=== PATIENT | male | born 1930 | race Asian ===

== ENCOUNTER 2018-08-23 07:50 | Outpatient (CLI) | payer BC ==
[2018-08-23 09:28] LABS: HEMATOCRIT 43 % (39-51); HEMOGLOBIN 13.9 g/dL (13.5-17.5); MEAN CORPUSCULAR HGB CONC 33 g/dl (31.0-36.0); MEAN CORPUSCULAR VOLUME 90 fL (80-96); MONOCYTES # (AUTO) 0.4 /CMM (0.1-1.30); MONOCYTES % (AUTO) 9.8 % (2.0-12.0); NEUTROPHILS # (AUTO) 2.6 /CMM (1.8-8.9); NEUTROPHILS % (AUTO) 60.2 % (43.0-81.0); PLATELET COUNT (AUTO) 231 /CMM (150-450); RDW COEFFICIENT OF VARIATION 14.4 (11.5-15.0); RED BLOOD CELL COUNT(AUTO) 4.74 MIL/uL (4.5-6.0); WHITE BLOOD COUNT (AUTO) 4.3 K/uL (4.3-11.0)
[2018-08-23 09:44] LABS: ALANINE AMINOTRANSFERASE 17 U/L (12-78); ALBUMIN 4.3 g/dL (3.4-5.0); ALKALINE PHOSPHATASE 77 U/L (46-116); ASPARTATE AMINOTRANSFERASE 17 U/L (15-37); CARBON DIOXIDE 27 mmol/L (21-32); CHLORIDE 106 mmol/L (98-107); CREATININE 1.1 mg/dL (0.6-1.3); GLUCOSE 101 mg/dL (74-106); POTASSIUM 4.2 mmol/L (3.5-5.1); SODIUM SERUM 143 mmol/L (136-145); TOTAL PROTEIN, SERUM 7.8 g/dL (6.4-8.2); UREA NITROGEN, BLOOD 14 mg/dL (7-18)
[2018-08-23 09:52] LABS: THYROID STIMULATING HORMONE 1.196 uIU/mL (0.358-3.74); URIC ACID 4.5 mg/dL (2.6-7.2)
== END 2018-08-23 23:59 | disposition home or self-care (01) ==
LOC: LAB 07:50
PROVIDERS: ATTEND Family Medicine
DX: M19.071 Primary osteoarthritis, right ankle and foot (principal); M85.871 Other specified disorders of bone density and structure, right ankle and foot; M17.0 Bilateral primary osteoarthritis of knee; M21.969 Unspecified acquired deformity of unspecified lower leg
CPT/HCPCS: 36415; 73562; 73610-TC; 73630-TC; 80053-TC; 84439-TC; 84443-TC; 84550-TC; 85025-TC; 86431-TC

== ENCOUNTER 2018-08-25 10:52 | Outpatient (CLI) | payer BC | END 2018-08-25 23:59 | disposition home or self-care (01) | LOC: MRI 10:52 | PROVIDERS: ATTEND Family Medicine | DX: M47.897 Other spondylosis, lumbosacral region (principal); M48.03 Spinal stenosis, cervicothoracic region | CPT/HCPCS: 72141-TC ==

== ENCOUNTER 2019-08-16 12:25 | Outpatient (CLI) | payer BC | END 2019-08-16 23:59 | disposition home or self-care (01) | LOC: MRI 12:25 | PROVIDERS: ATTEND Family Medicine | DX: G31.89 Other specified degenerative diseases of nervous system (principal); M48.03 Spinal stenosis, cervicothoracic region; M47.812 Spondylosis without myelopathy or radiculopathy, cervical region; M25.78 Osteophyte, vertebrae; M46.03 Spinal enthesopathy, cervicothoracic region; M12.88 Other specific arthropathies, not elsewhere classified, other specified site; M40.292 Other kyphosis, cervical region | CPT/HCPCS: 70551-TC; 72141-TC ==

== ENCOUNTER 2019-12-04 12:40 | Outpatient (CLI) | payer BC ==
[2019-12-11 13:42] LABS: BASOPHILS # (AUTO) 0.1 /CMM (0.0-0.2); BASOPHILS % (AUTO) 2.9 % (0.0-2.0); HEMATOCRIT 30 % (39-51); HEMOGLOBIN 9.6 g/dL (13.5-17.5); LYMPHOCYTES # (AUTO) 0.7 /CMM (0.8-4.8); LYMPHOCYTES % (AUTO) 22.1 % (20.0-44.0); MEAN CORPUSCULAR HGB CONC 32 g/dl (31.0-36.0); MEAN CORPUSCULAR VOLUME 74 fL (80-96); MONOCYTES # (AUTO) 0.4 /CMM (0.1-1.30); MONOCYTES % (AUTO) 14.2 % (2.0-12.0); NEUTROPHILS # (AUTO) 1.5 /CMM (1.8-8.9); NEUTROPHILS % (AUTO) 51.8 % (43.0-81.0); PLATELET COUNT (AUTO) 256 /CMM (150-450); RED BLOOD CELL COUNT(AUTO) 4.12 MIL/uL (4.5-6.0)
[2019-12-13 13:08] LABS: *IFE A/G RATIO 1.2 (0.7-1.7); *IFE ALBUMIN 3.5 g/dL (2.9-4.4); *IFE ALPHA-2-GLOBULIN 0.7 g/dL (0.4-1.0); *IFE GAMMA GLOBULIN 1.2 g/dL (0.4-1.8); *IFE M-SPIKE Not Observed g/dL (Not Observed); *IFEALPHA-1-GLOBULIN 0.2 g/dL (0.0-0.4); IMMUNOGLOBULIN A, SERUM 178 mg/dL (61-437); IMMUNOGLOBULIN G, SERUM 1209 mg/dL (700-1600); IMMUNOGLOBULIN M, SERUM 46 mg/dL (15-143)
== END 2019-12-04 23:59 | disposition home or self-care (01) ==
LOC: CARD 12:40
PROVIDERS: ATTEND Family Medicine
DX: J98.11 Atelectasis (principal); K44.9 Diaphragmatic hernia without obstruction or gangrene
CPT/HCPCS: 36415; 71046; 82784; 84155; 84165; 85025-TC; 86334; 93307-TC

== ENCOUNTER 2021-02-21 05:26 | Emergency (ER) | payer BC, OTHER ==
[~2021-02-21] VITALS: Ht 170.2 cm; Wt 65.8 kg
--- NOTE | 2021-02-21 05:45 | NUR ---
PT BIBWIFE C/O L HAND PAIN +SWELLING AND L RIB PAIN S/P GLF YESTERDAY. PT AAOX4, DENIES KO, RESPIRATIONS EVEN AND UNLABORED ON RA W/ NAD NOTED. PT CONNECTED TO THE MONITOR AND POX
--- NOTE | 2021-02-21 05:50 | NUR ---
XRAY AT BEDSIDE
[2021-02-21 07:17] VITALS: BP 128/68
--- NOTE | 2021-02-21 07:17 | NUR ---
Patient discharged to home in stable condition. Written and verbal after care instructions given. Patient verbalizes understanding of instruction.pt.ambulatory with a steady gait
== END 2021-02-21 07:18 | disposition home or self-care (01) ==
LOC: EDBD 05:30 → ER 05:30
DX: S52.592A Other fractures of lower end of left radius, initial encounter for closed fracture (principal); S20.212A Contusion of left front wall of thorax, initial encounter; M79.642 Pain in left hand; W01.0XXA Fall on same level from slipping, tripping and stumbling without subsequent striking against object, initial encounter; Y93.89 Activity, other specified; Y92.89 Other specified places as the place of occurrence of the external cause; Y99.8 Other external cause status
CPT/HCPCS: 71100-TC; 73110; 73130-TC

== ENCOUNTER 2021-04-25 10:27 | Outpatient (CLI) | payer BC, OTHER ==
[2021-04-25 12:46] LABS: BASOPHILS # (AUTO) 0.1 /CMM (0.0-0.2); BASOPHILS % (AUTO) 1.5 % (0.0-2.0); EOSINOPHILS % (AUTO) 3.4 % (0.0-6.0); HEMATOCRIT 38 % (39-51); HEMOGLOBIN 12.8 g/dL (13.5-17.5); LYMPHOCYTES # (AUTO) 0.6 /CMM (0.8-4.8); LYMPHOCYTES % (AUTO) 14.6 % (20.0-44.0); MEAN CORPUSCULAR HGB CONC 34 g/dl (31.0-36.0); MEAN CORPUSCULAR VOLUME 93 fL (80-96); MONOCYTES # (AUTO) 0.4 /CMM (0.1-1.30); MONOCYTES % (AUTO) 10.6 % (2.0-12.0); NEUTROPHILS # (AUTO) 2.7 /CMM (1.8-8.9); NEUTROPHILS % (AUTO) 69.9 % (43.0-81.0); PLATELET COUNT (AUTO) 211 /CMM (150-450); RED BLOOD CELL COUNT(AUTO) 4.11 MIL/uL (4.5-6.0); WHITE BLOOD COUNT (AUTO) 3.9 K/uL (4.3-11.0)
[2021-04-25 13:02] LABS: ALBUMIN 3.8 g/dL (3.4-5.0); BILIRUBIN,TOTAL 0.9 mg/dL (0.2-1.0); CALCIUM, SERUM 8.7 mg/dL (8.5-10.1); CREATININE 1.1 mg/dL (0.6-1.3); POTASSIUM 4.1 mmol/L (3.5-5.1)
[2021-04-25 13:10] LABS: THYROID STIMULATING HORMONE 1.066 uIU/mL (0.358-3.74)
== END 2021-04-25 23:59 | disposition home or self-care (01) ==
LOC: LAB 10:27
PROVIDERS: ATTEND Family Medicine
DX: I10 Essential (primary) hypertension (principal); E78.5 Hyperlipidemia, unspecified
CPT/HCPCS: 80053-TC; 80061-TC; 82784; 84155; 84165; 84439-TC; 84443-TC; 85025-TC; 86334